=== PATIENT | male | born 1965 | race Caucasian/White ===

== ENCOUNTER 2018-06-01 10:26 | Emergency (ER) | payer BC ==
--- NOTE | 2018-06-01 10:53 | EDM.PDOC ---
ED HPI GENERAL MEDICAL PROBLEM - General Chief Complaint: Skin Complaint Stated Complaint: SPIDER BITE Time Seen by Provider: 06/01/18 10:53 Source of Information: Reports: Patient History Limitations: Reports: No Limitations - History of Present Illness INITIAL COMMENTS - FREE TEXT/NARRATIVE: HISTORY AND PHYSICAL: History of present illness: Patient is a 52-year-old male here with concern about spider bite. He states he noticed a little simple in his pubic area 3 days ago which he popped and got some drainage. He states it's gotten worse since that has gotten hard and more red and painful. He denies any fevers or chills. Past medical history significant for type 2 diabetes. Review of systems: As per history of present illness and below otherwise all systems reviewed and negative. Past medical history: As per history of present illness and as reviewed below otherwise noncontributory. Surgical history: As per history of present illness and as reviewed below otherwise noncontributory. Social history: No reported history of drug or alcohol abuse. Family history: As per history of present illness and as reviewed below otherwise noncontributory. Physical exam: General: Patient sitting comfortably in no acute distress and nontoxic appearing HEENT: Atraumatic, normocephalic, pupils reactive, negative for conjunctival pallor or scleral icterus, mucous membranes moist, throat clear, neck supple, nontender, trachea midline. No meningeal signs. Lungs: Clear to auscultation, breath sounds equal bilaterally, chest nontender. Heart: S1S2, regular, negative for clicks, rubs, or overt murmur. Abdomen: Soft, nondistended, nontender. Negative for masses or hepatosplenomegaly. Negative for costovertebral tenderness. Pelvis: Stable nontender. Genitourinary: Deferred. Rectal: Deferred. Skin: There is an indurated area of the superior pubic area with a central punctum and surrounding erythema and warmth. Extremities: Atraumatic, negative for cords or calf pain. Neurovascular unremarkable. Neuro: Awake, alert, oriented. Cranial nerves II through XII unremarkable. Cerebellum unremarkable. Motor and sensory unremarkable throughout. Exam nonfocal. Notes: Diagnostics: None Therapeutics: I&D Prescriptions: Bactrim Impression: Abscess and cellulitis Plan: 1. Warm compresses and take antibiotic as instructed. Tylenol or motrin as needed for pain. 2. Follow up with primary care provider 3. Return to ED as needed as discussed Definitive disposition and diagnosis as appropriate pending reevaluation and review of above. Lower Abdominal Pain Score (Numeric/FACES): 7 - Related Data Allergies Allergy/AdvReac Type Severity Reaction Status Date / Time No Known Allergies Allergy Verified 06/01/18 10:55 Home Meds: Home Meds Canagliflozin [Invokana] 300 mg PO DAILY 06/01/18 [History] Cholecalciferol (Vitamin D3) [Vitamin D3] 5,000 unit PO DAILY 06/01/18 [History] Lisinopril 10 mg PO DAILY 06/01/18 [History] Sulfamethoxazole/Trimethoprim [Bactrim Ds Tablet] 1 each PO BID 7 Days #14 tablet 06/01/18 [Rx] atorvaSTATin [Lipitor] 10 mg PO DAILY 06/01/18 [History] metFORMIN [Glucophage XR] 500 mg PO DAILY 06/01/18 [History] ED ROS GENERAL - Review of Systems Review Of Systems: ROS reveals no pertinent complaints other than HPI. ED EXAM, SKIN/RASH Exam: See Below (see dictation) ED SKIN PROCEDURES - I&D Site: pubic area Skin Prep: Providone-Iodine (Betadine) Local Anesthesia: Lidocaine: 1% Plain Local Anesthetic Volume: 2cc Area Incised With: 11 Blade Drainage: Purulent, Bloody, Small Amount Course - Vital Signs Last Recorded V/S: Last Vital Signs Temp 97.1 F 06/01/18 10:53 Pulse 115 H 06/01/18 10:53 Resp 20 06/01/18 10:53 BP 120/94 H 06/01/18 10:53 Pulse Ox 95 06/01/18 10:53 - Orders/Labs/Meds Meds: Medications Discontinued Medications Generic Name Dose Route Start Last Admin Trade Name Freq PRN Reason Stop Dose Admin Lidocaine HCl 5 ml 06/01/18 11:08 Xylocaine-Mpf 1% INJECT 06/01/18 11:09 ONETIME ONE Departure - Departure Time of Disposition: 12:06 Disposition: Home, Self-Care 01 Condition: Good Clinical Impression: Abscess, Cellulitis - Discharge Information Referrals: PCP,None [Primary Care Provider] - Forms: ED Department Discharge Additional Instructions: The following information is given to patients seen in the emergency department who are being discharged to home. This information is to outline your options for follow-up care. We provide all patients seen in our emergency department with a follow-up referral. The need for follow-up, as well as the timing and circumstances, are variable depending upon the specifics of your emergency department visit. If you don't have a primary care physician on staff, we will provide you with a referral. We always advise you to contact your personal physician following an emergency department visit to inform them of the circumstance of the visit and for follow-up with them and/or the need for any referrals to a consulting specialist. The emergency department will also refer you to a specialist when appropriate. This referral assures that you have the opportunity for follow-up care with a specialist. All of these measure are taken in an effort to provide you with optimal care, which includes your follow-up. Under all circumstances we always encourage you to contact your private physician who remains a resource for coordinating your care. When calling for follow-up care, please make the office aware that this follow-up is from your recent emergency room visit. If for any reason you are refused follow-up, please contact the [facility] Emergency Department at and asked to speak to the emergency department charge nurse. [facility] [address] [place] [id number] [facility] [address] [place] [id number] 1. Warm compresses and take antibiotic as instructed. Tylenol or motrin as needed for pain. 2. Follow up with primary care provider 3. Return to ED as needed as discussed
== END 2018-06-01 12:21 | disposition home or self-care (01) ==
LOC: MW.ED 10:26
DX: L02.219 Cutaneous abscess of trunk, unspecified (principal); L03.319 Cellulitis of trunk, unspecified; E11.9 Type 2 diabetes mellitus without complications; Z79.899 Other long term (current) drug therapy; Z79.84 Long term (current) use of oral hypoglycemic drugs
CPT/HCPCS: 10060; 99282; J2001

== ENCOUNTER 2020-09-10 07:48 | Emergency (ER) | payer BC, OTHER ==
[2020-09-10] MEDS ORDERED: Benzocaine 20% Topical Spray UD MUCMEM ONE (08:10)
[2020-09-10] MEDS ORDERED: Lidocaine 1% with EPINEPHrine 1:100,000 20 ML MDV INJECT ONE (08:11)
[2020-09-10] MEDS ORDERED: Clindamycin HCl 150 MG Cap PO ONE (08:13)
--- NOTE | 2020-09-10 08:22 | EDM.PDOC ---
ED HPI GENERAL MEDICAL PROBLEM - General Chief Complaint: General Stated Complaint: TOOTH PAIN Time Seen by Provider: 09/10/20 07:52 - History of Present Illness INITIAL COMMENTS - FREE TEXT/NARRATIVE: History of present illness: [] This patient who is local here for work lives in [place] and will return on the . He is treated by the [facility] in [place]. They follow his diabetes and they would provide a dentist for him. Days ago he began to have a tooth ache in the upper right jaw. Yesterday noticed a soft boggy painful mass in the right upper palate near the molars and premolars. He denies fever and chills. He denies weakness nausea vomiting. He says he has no history of heart murmur. Review of systems: As per history of present illness and below otherwise all systems reviewed and negative. Past medical history: As per history of present illness and as reviewed below otherwise noncontributory. Surgical history: As per history of present illness and as reviewed below otherwise noncontribut ory. Social history: No reported history of drug or alcohol abuse. Family history: As per history of present illness and as reviewed below otherwise noncontributory. Physical exam: Constitutional - well developed, well-nourished and in no acute distress HEENT - normocephalic, no evidence of trauma - external nose and mouth normal - no mass in neck and no JVD - mucosae moist EYES - full EOM, PERRL, no icterus - no evidence of inflammation, injection, or drainage Respiratory - no respiratory distress, equal bilateral expansion Musculoskeletal no gross deformity of long bones or joints - no tenderness, swelling or edema Neurologic - Alert and oriented times four - CN II-XII grossly intact - motor sensory and coordination symmetrically normal Psychiatric - appropriate mood and affect with normal thought content Hematologic - No petechiae or purpura - mucosa appropriate color and sclera not pale - normal nail bed color and refill Integument - no rash or evidence of trauma - normal turgor Diagnostics: [] Therapeutics: [] Impression: [] Plan: [] Definitive disposition and diagnosis as appropriate pending reevaluation and review of above. right dental Pain Score (Numeric/FACES): 8 - Related Data Allergies Allergy/AdvReac Type Severity Reaction Status Date / Time No Known Allergies Allergy Verified 09/10/20 08:00 Home Meds: Home Meds Lisinopril 10 mg PO DAILY 06/01/18 [History] metFORMIN [Glucophage XR] 500 mg PO DAILY 06/01/18 [History] Acetaminophen/HYDROcodone [[place] 325-10 MG] 1 tab PO Q4H PRN #12 tab 09/10/20 [Rx] Clindamycin HCl 300 mg PO TID #30 capsule 09/10/20 [Rx] Past Medical History HEENT History: Reports: None Cardiovascular History: Reports: High Cholesterol, Hypertension Respiratory History: Reports: None Genitourinary History: Reports: None Musculoskeletal History: Reports: None Neurological History: Reports: None Psychiatric History: Reports: None Endocrine/Metabolic History: Reports: Diabetes, Type II Immunologic History: Reports: None Oncologic (Cancer) History: Reports: None Dermatologic History: Reports: None - Infectious Disease History Infectious Disease History: Reports: None - Past Surgical History Head Surgeries/Procedures: Reports: None GI Surgical History: Reports: Appendectomy Social & Family History - Family History Family Medical History: No Pertinent Family History - Caffeine Use Caffeine Use: Reports: None - Recreational Drug Use Recreational Drug Use: No ED ROS GENERAL - Review of Systems Review Of Systems: Comprehensive ROS is negative, except as noted in HPI. ED EXAM, GENERAL - Physical Exam Exam: See Below Free Text/Narrative:: My physical exam is in the [facility] ED GENERAL MEDICAL PROCEDURES - Additional/Other Procedure(s) Other (Free Text) Procedure(s): Incision and drainage Patient was anesthetized with Cetacaine and then injectable lidocaine 1% with epinephrine. A total of 1 mL of lidocaine was used. Area was prepped with C hloraseptic and the small stab incision made with an 11 blade. Gentle pressure was applied to dispense the purulent material. Gauze was applied to obtain hemostasis. Liters of purulent material was extruded. Tolerated procedure well. Course - Vital Signs Last Recorded V/S: Last Vital Signs Temp 37.1 C 09/10/20 08:02 Pulse 87 09/10/20 08:02 Resp 16 09/10/20 08:02 BP 139/80 09/10/20 08:02 Pulse Ox 96 09/10/20 08:02 - Orders/Labs/Meds Meds: Medications Discontinued Medications Generic Name Dose Route Start Last Admin Trade Name Freq PRN Reason Stop Dose Admin Benzocaine 1 each 09/10/20 08:10 09/10/20 08:20 Benzocaine 20% Topical [place] Ud MUCMEM 09/10/20 08:11 1 each ONETIME ONE Administration Clindamycin HCl 300 mg 09/10/20 08:13 09/10/20 08:20 Clindamycin Hcl 150 Mg Cap PO 09/10/20 08:14 300 mg ONETIME ONE Administration Lidocaine/Epinephrine 20 ml 09/10/20 08:11 09/10/20 08:20 Lidocaine 1% With Epinephrine 1:100,000 20 Ml Mdv INJECT 09/10/20 08:12 20 ml ONETIME ONE Administration Departure - Departure Time of Disposition: 08:34 Disposition: Home, Self-Care Clinical Impression: Periodontal disease, Abscess of soft tissue of mouth - Discharge Information Prescriptions: Clindamycin HCl 300 mg PO TID #30 capsule Instructions: Dental Abscess, [id number] Referrals: PCP,None [Primary Care Provider] - Forms: ED Department Discharge Additional Instructions: You need to see [facility] to [facility] one here locally. To return to an emergency room if you develop weakness fever chills or feel like you are going to pass out. If your voice changes you have trouble breathing or you cannot swallow well you need to return as well [facility] [address] [place] [address] [place] [address] The following information is given to patients seen in the emergency department who are being discharged to home. This information is to outline your options for follow-up care. We provide all patients seen in our emergency department with a follow-up referral. The need for follow-up, as well as the timing and circumstances, are variable depending upon the specifics of your emergency department visit. If you don't have a primary care physician on staff, we will provide you with a referral. We always advise you to contact your personal physician following an emergency department visit to inform them of the circumstance of the visit and for follow-up with them and/or the need for any referrals to a consulting specialist. The emergency department will also refer you to a specialist when appropriate. This referral assures that you have the opportunity for follow-up care with a specialist. All of these measure are taken in an effort to provide you with optimal care, which includes your follow-up. Under all circumstances we always encourage you to contact your private physician who remains a resource for coordinating your care. When calling for follow-up care, please make the office aware that this follow-up is from your recent emergency room visit. If for any reason you are refused follow-up, please contact the [facility] Emergency Department at and asked to speak to the emergency department charge nurse. Sepsis Event Note (ED) - Evaluation Sepsis Screening Result: No Definite Risk - Focused Exam Vital Signs: Vital Signs Temp Pulse Resp BP Pulse Ox 09/10/20 08:02 37.1 C 87 16 139/80 96
== END 2020-09-10 08:52 | disposition home or self-care (01) ==
LOC: MW.ED 07:48
DX: K12.2 Cellulitis and abscess of mouth (principal); K05.6 Periodontal disease, unspecified; I10 Essential (primary) hypertension; E11.9 Type 2 diabetes mellitus without complications; Z79.84 Long term (current) use of oral hypoglycemic drugs; Z79.899 Other long term (current) drug therapy
CPT/HCPCS: 41800; 99282; A9270

== ENCOUNTER 2021-06-20 14:04 | Emergency (ER) | payer OTHER ==
--- NOTE | 2021-06-20 15:00 | EDM.PDOC ---
ED HPI GENERAL MEDICAL PROBLEM - General Chief Complaint: Respiratory Problem Stated Complaint: SOB Time Seen by Provider: 06/20/21 14:59 Source of Information: Reports: Patient History Limitations: Reports: No Limitations - History of Present Illness INITIAL COMMENTS - FREE TEXT/NARRATIVE: HISTORY AND PHYSICAL: History of present illness: Patient is a 55-year-old male who presents to the emergency room with complaints of body aches, chills, cough and shortness of breath x3 days. He states it has progressively gotten worse daily. Patient denies any headache, change in vision, syncope or near syncope. Denies any chest pain, back pain, vomiting, diarrhea, constipation or dysuria. Has not noted any blood in urine or stool. Patient has been eating and drinking appropriately. No recent travel or sick contacts. Review of systems: As per history of present illness and below otherwise all systems reviewed and negative. Past medical history: As per history of present illness and as reviewed below otherwise noncontributory. Surgical history: As per history of present illness and as reviewed below otherwise noncontributory. Social history: See social history for further information Family history: As per history of present illness and as reviewed below otherwise noncontributory. Physical exam: General: Well developed and well nourished 55 year old male. Alert and orientated x 3. Nontoxic in appearance and in no acute distress. Vital signs are stable and have been reviewed by me. Nursing notes were reviewed. HEENT: Atraumatic, normocephalic, pupils equal and reactive bilaterally, negative for conjunctival pallor or scleral icterus, mucous membranes moist, TMs normal bilaterally, throat clear, neck supple, nontender, trachea midline. No drooling or trismus noted. No meningeal signs. No hot potato voice noted. Lungs: Diminished to auscultation bilaterally. No wheezes, rales, or rhonchi. Chest nontender. Normal work of breathing, no accessory muscles used. Heart: S1S2, regular rate and rhythm without overt murmur, gallops, or rubs. No JVD. No peripheral edema Abdomen: Soft, nondistended, nontender. Normoactive bowel sounds. Negative for masses or costovertebral tenderness. Pelvis: Stable nontender. Genitourinary/Rectal: Deferred. Skin: Intact, warm, dry. No lesions or rashes noted. Hematologic: No petechiae or purpra. Mucosa appropriate color and normal nail bed color and refill. Extremities: Atraumatic, moves all extremities per self without difficulty or deficits, negative for cords or calf pain. Neurovascular unremarkable. Neuro: Awake, alert, oriented. Cranial nerves II through XII unremarkable. Cerebellum unremarkable. Motor and sensory unremarkable throughout. Exam nonfocal. Psychiatric: Mood and affect are appropriate. Normal thought process. Answering questions appropriately. Please note that the patient was seen and evaluated during the 2019 SARS-CoV-2 novel coronavirus pandemic period. Community viral transmission is ongoing at time of this encounter and the emergency department is operating under pandemic response procedures. Medical Decision Making: Patien'ts oxygen is at 93% on RA and with ambulation. COVID positive. X-ray shows a subtle left mid and lower lung infiltrate. I will treat with zpak. Strict return precautions have been discussed. I have talked with the patient about today's findings, in addition to providing specific details for plan of care. Reassessment at the time of disposition demonstrates that the patient is in no acute distress. The patient is stable for discharge, counseling was provided and we discussed in great detail signs and symptoms that would prompt them to return to the Emergency Department. Medication, follow up and supportive care measures were reviewed and discussed. Voices understanding and is agreeable to plan of care. Denies any further questions or concerns at this time. Diagnostics: COVID-19/influenza, chest x-ray Therapeutics: None Prescription: Zpak Impression: COVID pneumonia Plan: 1. You were evaluated today on an emergent basis. Your COVID-19 screening is positive. That means you do have the coronavirus and you are considered contagious. Your chest x-ray does show a subtle infiltrate on the left mid lung, we will treat this with antibiotics to prevent infection such as pneumonia. Your vital signs and oxygen saturation are well enough that you were able to monitor your symptoms at home. Continue to monitor for trouble breathing, new confusion or inability to arouse, bluish lips or face or any of the other symptoms we discussed -if this occurs please return to the emergency room immediately. 2. Please self quarantine until cleared by [facility]. Inform any persons that you have been in contact with since you started becoming symptomatic that you have tested positive; they should be made aware and take the appropriate steps as needed. 3. You can take NyQuil during the evening to help get a restful night sleep. May alternate Tylenol and ibuprofen as needed for pain and fever management. 4. The [facility] department will be calling you and following up with you. The [place] [facility] Hotline phone number , They are open Monday - Monday 7am - 7pm. Follow up with your primary care provider for re-evaluation as directed. Definitive disposition and diagnosis as appropriate pending reevaluation and review of above. - Related Data Allergies Allergy/AdvReac Type Severity Reaction Status Date / Time No Known Allergies Allergy Verified 06/20/21 15:04 Home Meds: Home Meds Lisinopril 10 mg PO DAILY 06/01/18 [History] metFORMIN [Glucophage XR] 500 mg PO DAILY 06/01/18 [History] Azithromycin [Zithromax] 1 dose PO DAILY 5 Days #6 tab 06/20/21 [Rx] Past Medical History HEENT History: Reports: None Cardiovascular History: Reports: High Cholesterol, Hypertension Respiratory History: Reports: None Genitourinary History: Reports: None Musculoskeletal History: Reports: None Neurological History: Reports: None Psychiatric History: Reports: None Endocrine/Metabolic History: Reports: Diabetes, Type II Immunologic History: Reports: None Oncologic (Cancer) History: Reports: None Dermatologic History: Reports: None - Infectious Disease History Infectious Disease History: Reports: None - Past Surgical History Head Surgeries/Procedures: Reports: None GI Surgical History: Reports: Appendectomy Social & Family History - Family History Family Medical History: No Pertinent Family History - Caffeine Use Caffeine Use: Reports: None ED ROS GENERAL - Review of Systems Review Of Systems: Comprehensive ROS is negative, except as noted in HPI. ED EXAM, GENERAL - Physical Exam Exam: See Below (See dictation) Course - Vital Signs Last Recorded V/S: Last Vital Signs Temp 97.7 F 06/20/21 15:06 Pulse 97 06/20/21 16:17 Resp 20 06/20/21 16:17 BP 121/79 06/20/21 16:17 Pulse Ox 94 L 06/20/21 16:17 - Orders/Labs/Meds Labs: Laboratory Tests 06/20/21 Range/Units 15:12 Influenza Type A RNA NEGATIVE (NEGATIVE) Influenza Type B RNA NEGATIVE (NEGATIVE) SARS-CoV-2 RNA (JOSE LUIS) POSITIVE H (NEGATIVE) Departure - Departure Time of Disposition: 17:12 Disposition: Home, Self-Care 01 Clinical Impression: Pneumonia due to COVID-19 virus - Discharge Information Prescriptions: Azithromycin [Zithromax] 1 dose PO DAILY 5 Days #6 tab Instructions: 10 Things You Can Do to Manage Your COVID-19 Symptoms at Home - [facility] (12/25/2020) Referrals: PCP,None [Primary Care Provider] - Forms: ED Department Discharge Additional Instructions: The following information is given to patients seen in the emergency department who are being discharged to home. This information is to outline your options for follow-up care. We provide all patients seen in our emergency department with a follow-up referral. The need for follow-up, as well as the timing and circumstances, are variable depending upon the specifics of your emergency department visit. If you don't have a primary care physician on staff, we will provide you with a referral. We always advise you to contact your personal physician following an emergency department visit to inform them of the circumstance of the visit and for follow-up with them and/or the need for any referrals to a consulting specialist. The emergency department will also refer you to a specialist when appropriate. This referral assures that you have the opportunity for follow-up care with a specialist. All of these measure are taken in an effort to provide you with optimal care, which includes your follow-up. Under all circumstances we always encourage you to contact your private physician who remains a resource for coordinating your care. When calling for follow-up care, please make the office aware that this follow-up is from your recent emergency room visit. If for any reason you are refused follow-up, please contact the [facility] Emergency Department at and asked to speak to the emergency department charge nurse. [facility] [address] [place] [id number] [facility] [address] [place] [phone] Thank you for choosing the [facility] emergency department in [place] for your medical needs today. It was a pleasure caring for you. Today you were seen in the emergency department for cough Your prescription was electronically sent to: [facility] Medication/Directions: Z-Abiodun for infiltrate of the left lung. This is an antibiotic to treat infection. This will not treat your COVID-19 diagnosis 1. You were evaluated today on an emergent basis. Your COVID-19 screening is positive. That means you do have the coronavirus and you are considered contagious. Your chest x-ray does show a subtle infiltrate on the left mid lung, we will treat this with antibiotics to prevent infection such as pneumonia. Your vital signs and oxygen saturation are well enough that you were able to monitor your symptoms at home. Continue to monitor for trouble breathing, new confusion or inability to arouse, bluish lips or face or any of the other symptoms we discussed -if this occurs please return to the emergency room immediately. 2. Please self quarantine until cleared by [facility]. Inform any persons that you have been in contact with since you started becoming symptomatic that you have tested positive; they should be made aware and take the appropriate steps as needed. 3. You can take NyQuil during the evening to help get a restful night sleep. May alternate Tylenol and ibuprofen as needed for pain and fever management. 4. The [facility] department will be calling you and following up with you. The [place] COVID 19 Hotline phone number , They are open Monday - Monday 7am - 7pm. Follow up with your primary care provider for re-evaluation as directed. Sepsis Event Note (ED) - Focused Exam Vital Signs: Vital Signs Temp Pulse Resp BP Pulse Ox 06/20/21 16:17 97 20 121/79 94 L 06/20/21 15:06 97.7 F 92 19 126/79 93 L
--- NOTE | 2021-06-20 15:38 | CR ---
INDICATION: Shortness of breath TECHNIQUE: Single view chest. FINDINGS: Normal cardiac mediastinal silhouette. Subtle left mid and lower lung infiltrates. No effusion or pneumothorax. Dictated by Lisy Downing MD @ 06/20/2021 3:37:19 PM (Electronically Signed)
[2021-06-20 16:02] LABS: CORONAVIRUS COVID-19 NAA POSITIVE (NEGATIVE); INFLUENZA A NAA NEGATIVE (NEGATIVE); INFLUENZA B NAA NEGATIVE (NEGATIVE)
== END 2021-06-20 16:18 | disposition home or self-care (01) ==
LOC: MW.ED 14:04
DX: U07.1 COVID-19 (principal); J12.82 Pneumonia due to coronavirus disease 2019; E78.00 Pure hypercholesterolemia, unspecified; I10 Essential (primary) hypertension; E11.9 Type 2 diabetes mellitus without complications; Z79.84 Long term (current) use of oral hypoglycemic drugs; Z79.899 Other long term (current) drug therapy
CPT/HCPCS: 0240U; 71045; 99285

== ENCOUNTER 2023-05-25 08:17 | Emergency (ER) | payer OTHER ==
[2023-05-25] MEDS: Lidocaine 1% 5 ML VIAL INJECT ONE (08:34)
[2023-05-25] MEDS: Bupivacaine 0.5% 10 ML SDV INJECT ONE (08:34)
== END 2023-05-25 08:25 | disposition home or self-care (01) ==
LOC: MW.ED 08:17
DX: K02.9 Dental caries, unspecified (principal); K08.89 Other specified disorders of teeth and supporting structures; I10 Essential (primary) hypertension; E11.9 Type 2 diabetes mellitus without complications; Z79.84 Long term (current) use of oral hypoglycemic drugs; Z79.899 Other long term (current) drug therapy; Z90.49 Acquired absence of other specified parts of digestive tract
CPT/HCPCS: 64400; 99282; J0665; 99283; J3490

== ENCOUNTER 2023-05-27 22:23 | Emergency (ER) | payer OTHER ==
[2023-05-27] MEDS ORDERED: Benzocaine 20% Topical Spray UD MUCMEM STA (22:42)
[2023-05-27] MEDS ORDERED: Lidocaine 4% Top Soln 50 ML Bottle MUCMEM ONE (22:42)
[2023-05-27] MEDS ORDERED: Lidocaine 2% Viscous Solution 15 ML UD PO ONE (22:44)
[2023-05-28] MEDS ORDERED: Bupivacaine 0.5% 10 ML SDV INJECT ONE (00:07)
== END 2023-05-28 01:22 | disposition home or self-care (01) ==
LOC: MW.ED 22:23
DX: K08.89 Other specified disorders of teeth and supporting structures (principal); E11.9 Type 2 diabetes mellitus without complications; Z79.84 Long term (current) use of oral hypoglycemic drugs; Z90.49 Acquired absence of other specified parts of digestive tract
CPT/HCPCS: 99282; A9270; J0665; 99283

== ENCOUNTER 2024-09-10 16:22 | Emergency (ER) | payer OTHER ==
[2024-09-10 16:52] LABS: BASOPHILS ABSOLUTE AUTO 0.04 K/uL (0.00-0.20); BASOPHILS PERCENT AUTO 0.4 % (0.0-1.0); EOSINOPHILS ABSOLUTE AUTO 0.09 K/uL (0.00-0.45); HEMATOCRIT 43.8 % (42.0-52.0); HEMOGLOBIN 15.4 g/dL (14.0-18.0); IMMATURE GRAN ABSOLUTE AUTO 0.02 K/uL (0.00-0.05); IMMATURE GRAN PERCENT AUTO 0.2 % (0.0-0.4); LYMPHOCYTES ABSOLUTE AUTO 2.26 K/uL (1.00-4.80); LYMPHOCYTES PERCENT AUTO 24.4 % (24.0-44.0); MEAN CORPUSCULAR HEMOGLOBIN 30.8 pg (28.0-32.0); MEAN CORPUSCULAR HGB CONC 35.2 g/dL (32.0-36.0); MEAN CORPUSCULAR VOLUME 87.6 fL (83.0-99.0); MEAN PLATELET VOLUME 11.2 fL (9.4-12.4); MONOCYTES ABSOLUTE AUTO 0.53 K/uL (0.00-0.80); MONOCYTES PERCENT AUTO 5.7 % (0.0-8.0); NEUTROPHILS ABSOLUTE AUTO 6.34 K/uL (1.80-7.70); NEUTROPHILS PERCENT AUTO 68.3 % (41.0-71.0); PLATELET COUNT,PLT 194 K/uL (150-400); WHITE BLOOD CELL COUNT,WBC 9.28 K/uL (3.9-11.3)
[2024-09-10 17:15] LABS: BILIRUBIN TOTAL 0.6 mg/dL (0.2-1.0); CALCIUM 9.3 mg/dL (8.5-10.1); EST CRCL DRUG DOSING (CG) 85.76 mL/min; POTASSIUM,K 3.7 mmol/L (3.5-5.1); PROTEIN TOTAL,TP 7.9 g/dL (6.4-8.2)
[2024-09-10 18:51] LABS: MAGNESIUM 2.1 mg/dL (1.8-2.4)
[2024-09-10] MEDS: Sodium Chloride 0.9% 1,000 ML IV STA (19:22)
== END 2024-09-10 20:58 | disposition home or self-care (01) ==
LOC: MW.ED 16:22
DX: R55 Syncope and collapse (principal); I10 Essential (primary) hypertension; E78.00 Pure hypercholesterolemia, unspecified; Z79.4 Long term (current) use of insulin; Z79.899 Other long term (current) drug therapy; Z75.8 Other problems related to medical facilities and other health care
CPT/HCPCS: 36415; 71045; 80053; 83690; 83735; 84484; 85025; 85379; 93005; 96360; 99284; J7030; 99283

== ENCOUNTER 2025-01-05 12:06 | Emergency (ER) | payer OTHER | END 2025-01-05 13:27 | disposition home or self-care (01) | LOC: MW.ED 12:06 | DX: B34.9 Viral infection, unspecified (principal); E78.00 Pure hypercholesterolemia, unspecified; I10 Essential (primary) hypertension; E11.9 Type 2 diabetes mellitus without complications; Z79.4 Long term (current) use of insulin; Z79.899 Other long term (current) drug therapy | CPT/HCPCS: 71045; 87426; 99283; J8540; 99282 ==